=== PATIENT | male | born 1995 | race Caucasian/White ===

== ENCOUNTER 2021-01-11 19:22 | Emergency (ER) | payer OTHER ==
[~2021-01-11] VITALS: Ht 182.9 cm; Wt 63.5 kg
[2021-01-11 22:31] VITALS: BP 114/70
== END 2021-01-11 22:32 | disposition home or self-care (01) ==
LOC: ED 19:22
DX: S22.32XA Fracture of one rib, left side, initial encounter for closed fracture (principal); F17.290 Nicotine dependence, other tobacco product, uncomplicated; W51.XXXA Accidental striking against or bumped into by another person, initial encounter; Y93.62 Activity, american flag or touch football; Y92.39 Other specified sports and athletic area as the place of occurrence of the external cause

== ENCOUNTER → 2021-01-21 | Outpatient (CLI) | payer OTHER | LOC: RAD 08:45 | DX: R07.81 Pleurodynia (principal) ==